=== PATIENT | male | born 1980 | race Caucasian/White ===

== ENCOUNTER 2018-01-12 22:03 | Emergency (ER) | payer OTHER ==
[~2018-01-12] VITALS: Ht 185.4 cm; Wt 93.9 kg
[2018-01-12 22:41] LABS: HEMATOCRIT 48.7 % (42.0-52.0); HEMOGLOBIN 16.7 gm/dL (14.0-18.0); MCH 31.2 pg (26.0-34.0); MCHC 34.4 g/dL (28.0-37.0); MCV 90.7 fL (80.0-100.0); MPV 9.4 fl. (7.2-11.1); RBC 5.37 mil/uL (4.50-6.00); RDW-CV 12.6 % (10.5-14.5); WBC 7.9 thou/uL (4.0-11.0)
[2018-01-12 22:56] LABS: CALCIUM 8.8 mg/dL (8.5-10.1); CREATININE 1.3 mg/dL (0.6-1.3); POTASSIUM 3.6 mmol/L (3.5-5.1)
[2018-01-12 23:01] LABS: ALBUMIN 4.1 g/dL (3.4-5.0); TOTAL BILIRUBIN 0.9 mg/dL (<0.1-1.0)
[2018-01-12] MEDS ORDERED: PERCOCET 7.5-31 EACH PO (23:42)
[2018-01-13 01:11] VITALS: BP 138/72
== END 2018-01-13 01:11 | disposition home or self-care (01) ==
LOC: M.ERS 22:03
PROVIDERS: Physician Assistant
DX: S42.402A Unspecified fracture of lower end of left humerus, initial encounter for closed fracture (principal); S00.83XA Contusion of other part of head, initial encounter; S02.2XXA Fracture of nasal bones, initial encounter for closed fracture; Y04.8XXA Assault by other bodily force, initial encounter; Y93.89 Activity, other specified; Y92.89 Other specified places as the place of occurrence of the external cause; Y99.8 Other external cause status